=== PATIENT | female | born 1960 | race Caucasian/White ===

== ENCOUNTER 2025-08-22 15:05 | Emergency (ER) | payer MEDICARE ==
[~2025-08-22] VITALS: Ht 162.6 cm; Wt 72.1 kg
[2025-08-22 16:15] LABS: IMMATURE GRANULOCYTE ABSOLUTE 0.02 K/uL (0-1); NUCLEATED RED BLOOD CELLS 0.0 % (0.0-0.19); PLATELET COUNT (AUTO) 217 K/uL (130-400); RED BLOOD CELL COUNT(AUTO) 4.09 MIL/uL (4.00-5.50); RED CELL DISTRIBUTION WIDTH 13.3 % (11.0-15.5); WHITE BLOOD COUNT (AUTO) 6.1 K/uL (4.8-10.8)
--- NOTE | 2025-08-22 16:17 | EKG ---
[facility] Test Date: 2025-08-22 Test Time: 16:10:43 Pat Name: NEO DOAN Department: ED Room: Gender: F Vp Securities: [id number] : 1960 Requested By: SAGE BENAVIDES Order Number: [id number] Reading MD: Tod Mata Measurements Intervals [place] Rate: 60 P: 45 TX: 138 QRS: 42 QRSD: 103 T: 51 QT: 427 QTc: 427 Interpretive Statements Sinus rhythm No previous ECG available for comparison Electronically Signed On 08-23-2025 15:12:45 CDT by Tod Mata Please click the below link to view image of tracing.
[2025-08-22 16:25] LABS: CREATININE 0.8 mg/dL (0.5-1.0); GLOMERULAR FILTR. RATE CALC 81.0 mL/min (>90); GLUCOSE,RANDOM 79.0 mg/dL (70-105); SODIUM SERUM 141.0 mmol/L (136-145); UREA NITROGEN, BLOOD 18.0 mg/dL (7-18)
[2025-08-22 16:27] LABS: APPEARANCE,URINE CLEAR (CLEAR); GLUCOSE, URINE (UA) NEGATIVE (NEGATIVE); LEUKOCYTE ESTERASE ,URINE NEGATIVE Leu/uL (NEGATIVE); NITRATE,URINE NEGATIVE (NEGATIVE); OCCULT BLOOD,URINE NEGATIVE (NEGATIVE)
--- NOTE | 2025-08-22 16:27 | ERN ---
General Chief Complaint: Other Problems Stated Complaint: TREMBLING Time Seen by MD: 15:11 History of Present Illness Initial Comments 65 year old female with the past medical history of complex regional pain syndrome, spinal stenosis, neuropathy, anxiety , depression and rheumatic heart disease presented with the chief complain of involuntary jerky movement of b/l upper and lower limbs for 2 weeks which is on and off but this morning it worsened. She also complained of weakness. She do not complain of headache, fever, chest pain, shortness of breath, abdominal pain, burning urine and increased urinary frequency. Allergies: Coded Allergies: ampicillin (Unverified Allergy, Unknown, HIVES, 08/22/25) Home Meds Active Scripts Hydroxyzine HCl (Hydroxyzine HCl) 25 Mg Tablet, 1 TAB PO BID for anxiety for 5 Days, #10 TAB 0 Refills Prov:SAGE BENAVIDES MD 08/22/25 Past Medical History Past Medical History: Anxiety, Depression Medical History Other: SPINAL STENOSIS, NEUROPATHY, COMPLEX REGIONAL PAIN SYNDROME. Past Surgical History: Hysterectomy, Tonsillectomy, Surgical History Other: PAIN STIMULATOR IMPLANT, HERNIA SX ROS Dictation CONSTITUTIONAL: No chills, no fever, no diaphoresis, no malaise, weakness present HEAD/FACE: No signs of trauma. EENT: No eye pain, no blurred vision, no tearing, no double vision, no ear pain, no ear discharge, no nose pain, no nasal congestion, no throat pain, no throat swelling, no mouth pain. RESPIRATORY: No cough, no orthopnea, SOB, no stridor, wheezing. CARDIOVASCULAR: No chest pain, no edema, no palpitations, no syncope. GASTROINTESTINAL/ABDOMINAL: No abdominal pain, no constipation, no diarrhea, no nausea, no vomiting. GENITOURINARY: No abnormal discharge, no dysuria, no frequent urination, no hematuria. No complaints of pain in the genitals. MUSCULOSKELETAL: no gout, no joint pain, no joint swelling, no muscle pain, no muscle stiffness, no neck pain. INTEGUMENTARY: No change in color, no change in hair/nails, no dryness, no lesion, no lumps, no rash. NEUROLOGICAL/PSYCH: Anxiety and depression present, no emotional problem, no headache, no numbness, no pre-existing deficit, no history of seizures, tremor present HEMATOLOGIC/LYMPHATIC: Not anemic, no history of blood clots, no apparent bleeding, no bruising, glands not swollen. All Systems Negative, Except as Noted. Physical Exam Physical Exam Dictation GENERAL APPEARANCE: Alert, oriented x3, on acute distress HEAD AND FACE: Non-traumatic. EYES: PERRL, pink conjunctivas, eyelid no trauma, anterior chamber clear. EARS: Pinnas intact and no signs of trauma or erythema. Ear canals clear and no discharge. NOSE: No discharge, no bleeding. OROPHARYNX: Mouth normal, teeth no caries, tongue pink. Pharynx clear, no erythema. Tonsils no exudates, no abscesses noted. Mucous membrane moist. NECK: Supple, non-tender, no thyromegaly, no masses, no JVD, no bruits. BREAST: Deferred. CHEST: No tenderness, no crepitus, no paradoxical movement, no retractions. LUNGS: Clear, well-ventilated, symmetric, no rales, wheezing, no rhonchi, no stridor, good breath sounds bilaterally. HEART: Regular rate, regular rhythm, no murmur, no gallops. VASCULAR: No peripheral edema. ABDOMEN: Soft, positive bowel sounds, nondistended, no guarding, nontender, no rebound RECTAL: Deferred. GENITAL: Deferred. NEUROLOGICAL: Normal speech, gross motor function intact, power 4/5 the right leg, 5/5 in the left leg, gross sensory function intact. MUSCULOSKELETAL: Neck nontender, full range of motion, back nontender, full range of motion. EXTREMITIES: Nontender, full range of motion with resting tremor SKIN: Color pink, dry, no turgor, no rash, no lacerations, no abrasions, no contusions. LYMPHATICS: Deferred. Results Laboratory and Microbiology Lab and Micro Result Laboratory Tests Test 08/22/25 15:43 White Blood Count 6.1 K/uL (4.8-10.8) Red Blood Count 4.09 MIL/uL (4.00-5.50) Hemoglobin 12.4 g/dL (12.0-16.0) Hematocrit 38.6 % (36-48) Mean Corpuscular Volume 94.4 fL (79-99) Mean Corpuscular Hemoglobin 30.3 pg (27.0-33.0) Mean Corpuscular Hemoglobin Concent 32.1 g/dL (32.0-36.0) Red Cell Distribution Width 13.3 % (11.0-15.5) Platelet Count 217 K/uL (130-400) Mean Platelet Volume 10.0 fL (7.5-10.5) Immature Granulocyte % (Auto) 0.3 % (0-1) Neutrophils (%) (Auto) 60.1 % (40.0-77.0) Lymphocytes (%) (Auto) 27.6 % (21.0-51.0) Monocytes (%) (Auto) 7.9 % (3.0-13.0) Eosinophils (%) (Auto) 3.8 % (0.0-8.0) Basophils (%) (Auto) 0.3 % (0.0-5.0) Neutrophils # (Auto) 3.6 K/uL (1.8-7.7) Lymphocytes # (Auto) 1.7 K/uL (1.0-4.8) Monocytes # (Auto) 0.5 K/uL (0.1-1.0) Eosinophils # (Auto) 0.23 K/uL (0.00-0.70) Basophils # (Auto) 0.02 K/uL (0.00-0.20) Absolute Immature Granulocyte (auto 0.02 K/uL (0-1) Nucleated Red Blood Cells 0.0 % (0.0-0.19) Urine Color YELLOW (YELLOW) Urine Appearance CLEAR (CLEAR) Urine pH 6.0 (5.0-8.0) Urine Specific [place] 1.028 (1.001-1.031) Urine Protein NEGATIVE mg/dL (NEGATIVE) Urine Glucose (UA) NEGATIVE mg/dL (NEGATIVE) Urine Ketones NEGATIVE mg/dL (NEGATIVE) Urine Occult Blood NEGATIVE (NEGATIVE) Urine Nitrate NEGATIVE (NEGATIVE) Urine Bilirubin NEGATIVE mg/dL (NEGATIVE) Urine Urobilinogen 2.0 mg/dL (0.2-1.0) H Urine Leukocyte Esterase NEGATIVE Jeanine/uL Sodium Level 141 mmol/L (136-145) Potassium Level 4.0 mmol/L (3.5-5.1) Chloride Level 105 mmol/L (101-111) Carbon Dioxide Level 30 mmol/L (21-32) Blood Urea Nitrogen 18 mg/dL (7-18) Creatinine 0.8 mg/dL (0.5-1.0) Glomerular Filtration Rate Calc 81 mL/min (>90) Random Glucose 79 mg/dL (70-105) Total Calcium 8.6 mg/dL (8.5-10.1) Phosphorus Level 3.0 mg/dL (2.5-4.9) Magnesium Level 2.40 mg/dL (1.80-2.40) Total Bilirubin 0.3 mg/dL (0.2-1.0) Aspartate Amino Transf (AST/SGOT) 22 U/L (10-37) Alanine Aminotransferase (ALT/SGPT) 26 U/L (12-78) Alkaline Phosphatase 89 U/L (50-136) Total Creatine Kinase 63 U/L (21-232) Troponin I High Sensitivity 5 ng/L (4-50) Total Protein 7.0 g/dL (6.0-8.3) Albumin 3.9 g/dL (3.5-5.0) Urine Opiates Screen NEGATIVE (NEGATIVE) Urine Barbiturates Screen NEGATIVE (NEGATIVE) Urine Phencyclidine Screen NEGATIVE (NEGATIVE) Urine Amphetamines Screen NEGATIVE (NEGATIVE) Urine Benzodiazepines Screen NEGATIVE (NEGATIVE) Urine Cocaine Screen NEGATIVE (NEGATIVE) Urine Marijuana (THC) Screen NEGATIVE (NEGATIVE) Labs Reviewed?: Yes MDM MDM: Differential diagnosis: Functional tremor, enhanced physiologic tremor, , anxiety Rationale: Tests considered and ordered secondary to shared decision making include: Previous outside records reviewed: Old ER visits. Risk of complication and/or morbidity or mortality of patient management: None Medications-Per medication reconciliation Need for hospitalization: Patient does not meet criteria for hospitalization. Need for emergency major/minor surgery: No There are no social concerns with this patient. Prescription drug management Prescriptions will include symptomatic care Patient's prior external medical records from other ER visits were reviewed by me as indicated. Prior testing and results from previous visits were reviewed. Prior tests were taken into account with medical decision making and resource utilization, independent historian/historians were used to obtain complete medical history. 65 year old female with the past medical history of complex regional pain syndrome, spinal stenosis, neuropathy, anxiety , depression and rheumatic heart disease presented with the chief complain of involuntary jerky movement of b/l upper and lower limbs for 2 weeks which is on and off but this morning it worsened. She also complained of weakness. She do not complain of headache, fever, chest pain, shortness of breath, abdominal pain, burning urine and increased urinary frequency. ED Vitals: Temperature 98.2, blood pressure 141/85, respiratory rate 20, pulse 84, SpO2 97% in room air Lab workup including CBC, CMP, urinalysis, UDS, magnesium, phosphorus, troponin I and EKG were unremarkable. She was given Atarax 25 mg once which helped her with the symptoms and anxiety. Patient presented with tremors the tremors were absent at times when speaking to her in regards to the findings patient has been stable after receiving anxiolytics patient will be discharged in stable condition I did advised her appropriate follow up with PCP for ongoing evaluation and management laboratory workup within normal limits ED Course Orders Procedure Category Date Status Time Cbc With Differential LAB 08/22/25 Complete 15:36 Comprehensive LAB 08/22/25 Complete Metabolic Panel 15:36 Magnesium LAB 08/22/25 Complete 15:36 Creatine Kinase, Total LAB 08/22/25 Complete 15:36 Urinalysis Profile LAB 08/22/25 Complete 15:36 12 Lead Ekg Tracing- EKG 08/22/25 Complete Technical 15:36 Troponin I High LAB 08/22/25 Complete Sensitivity 15:36 Phosphorus LAB 08/22/25 Complete 15:36 Hydroxyzine 50mg Vial PHA 08/22/25 Complete (Atarax 50mg Inj) 16:30 Drug Screen Urine LAB 08/22/25 Complete 15:43 Current Medications Medications (Trade) Dose Ordered Sig/Frandy Route PRN Reason Start Time Stop Time Status Last Admin Dose Admin Hydroxyzine HCl (ATArax 50MG INJ) 25 mg ONCE ONCE IM 08/22/25 16:30 08/22/25 16:31 DC 08/22/25 16:41 Vital Signs Date Time Temp Pulse Resp B/P (MAP) Pulse Ox O2 Delivery O2 Flow Rate FiO2 08/22/25 17:04 98.2 64 15 122/64 94 Room Air* 0 21 08/22/25 15:17 98.2 64 15 145/66 98 Room Air* 0 21 08/22/25 15:07 98.1 84 20 121/85 97 Room Air 0 DX & DISP Disposition: Discharge Departure Impression: Primary Impression: Anxiety Critical Time: 30 minutes Condition: Stable Scripts Hydroxyzine HCl (Hydroxyzine HCl) 25 Mg Tablet 1 TAB PO BID for anxiety for 5 Days, #10 TAB 0 Refills Prov: SAGE BENAVIDES MD 10/31/25 Additional Instructions: Continue medications as instructed. Continue [id number] mg per oral twice a day for 5 days as required Follow up with PCP within 3 days Follow up to psychiatry and Neurology within 1-2 weeks. Referrals: SELF,REFERRAL (PCP) MATTY JO MD Time of Disposition: 17:35 ATTESTATION BY PHYSICIAN I have seen and examined the patient. I reviewed the documentation, medical decision making, and treatment plan as noted by the resident provider above. I agree with the findings and plan of care. Isabella Madrid MD, SUNIL MD Aug 22, 2025 16:27 ISABELLA MADRID MD Aug 22, 2025 17:36
[2025-08-22 16:30] LABS: ASPARTATE AMINOTRANSFERASE 22.0 U/L (10-37); CREATINE KINASE, TOTAL 63.0 U/L (21-232); PHOSPHORUS 3.0 mg/dL (2.5-4.9); TOTAL PROTEIN, SERUM 7.0 g/dL (6.0-8.3)
[2025-08-22 16:34] LABS: ADD UA MICROSCOPIC NO
[2025-08-22 16:36] LABS: AMPHET/METH SCREEN,URINE NEGATIVE (NEGATIVE); BARBITURATE SCREEN, URINE NEGATIVE (NEGATIVE); CANNABINOID SCREEN,URINE NEGATIVE (NEGATIVE); COCAINE SCREEN,URINE NEGATIVE (NEGATIVE)
[2025-08-22 17:04] VITALS: O2SAT 94
[2025-08-22] MEDS ORDERED: HYDR-3421 PO (17:31)
[2025-08-22 18:10] VITALS: BP 126/54; PULSE 53; RESP 13; TEMP 98.6
--- NOTE | 2025-08-22 18:11 | NUR ---
CHARGE NURSE MADE AWARE THAT PT IS FEELING DROWSY AND THEY ARE PENDING CERAMIC RESEARCH ENGINEER.
--- NOTE | 2025-08-23 11:11 | NUR ---
ENTERED PT CHART IN REGARDS TO UNPROCESSED PRESCRIPTION THAT HAD AN ERROR CODE WHEN SENT TO [facility]. I CALLED THE PTS PHARMACY AND PROVIDED THE PRESCRIPTION INFORMATION TO PHARMACIST MARIANO
== END 2025-08-22 18:09 | disposition home or self-care (01) ==
LOC: EDH 15:05
DX: R25.9 Unspecified abnormal involuntary movements (principal); F41.9 Anxiety disorder, unspecified; R53.1 Weakness; F32.A Depression, unspecified; G62.9 Polyneuropathy, unspecified; Z88.0 Allergy status to penicillin; Z90.710 Acquired absence of both cervix and uterus; Z90.89 Acquired absence of other organs; Z98.890 Other specified postprocedural states
CPT/HCPCS: 99284; 82550; 83735; 84100; 84484; 80053; 80305; 85025; 36415; 96372; 93005; 81003; J3410